=== PATIENT | female | born 1970 | race Two or more races ===

== ENCOUNTER 2018-12-20 22:03 | Emergency (ER) | payer OTHER ==
[~2018-12-20] VITALS: Ht 162.6 cm; Wt 68.0 kg
[2018-12-20 22:10] VITALS: BP 114/68
[2018-12-20] MEDS ORDERED: TETRACAINE 0.5% OPHTH SOLUTION 4ML BOTTLE. ONE (22:10)
[2018-12-20] MEDS ORDERED: ERYTHROMYCIN 0.5% OPHTH OINTMENT 1GM TUBE. OS ONE (22:15)
[2018-12-20] MEDS ORDERED: TETRACAINE 0.5% OPHTH SOLUTION 4ML BOTTLE. OS ONE (22:15)
[2018-12-20] MEDS ORDERED: EYE-STREAM OPHTH SOLUTION 120 ML BOTTLE. OS ONE (22:30)
[2018-12-20] MEDS ORDERED: FLUORESCEIN OPHTH TEST STRIP. OS ONE (22:45)
[2018-12-20] MEDS ORDERED: ERYT1OIN6 OP (23:36)
--- NOTE | 2018-12-20 23:37 | PHYS DOC ---
Past Medical History Past Medical History: No Pertinent History Past Surgical History: Hysterectomy Alcohol Use: None Drug Use: None Adult General Chief Complaint Chief Complaint: EYE PROBLEMS HPI HPI Patient is a 48 year old [f__sex] who presents with [] Review of Systems Review of Systems Constitutional: Denies fever or chills [] Eyes: Denies change in visual acuity, redness, or eye pain [] HENT: Denies nasal congestion or sore throat [] Respiratory: Denies cough or shortness of breath [] Cardiovascular: No additional information not addressed in HPI [] GI: Denies abdominal pain, nausea, vomiting, bloody stools or diarrhea [] : Denies dysuria or hematuria [] Musculoskeletal: Denies back pain or joint pain [] Integument: Denies rash or skin lesions [] Neurologic: Denies headache, focal weakness or sensory changes [] Endocrine: Denies polyuria or polydipsia [] All other systems were reviewed and found to be within normal limits, except as documented in this note. Current Medications Current Medications Current Medications Medications (Trade) Dose Ordered Sig/Caitlin Start Time Stop Time Status Last Admin Dose Admin Acetaminophen/ Hydrocodone Bitart (Lortab 5/325) 1 tab 1X ONCE 12/21/18 00:00 12/21/18 00:01 DC Balanced Salt Solution (Eye-Stream) 120 ml 1X ONCE 12/20/18 22:30 12/20/18 22:40 DC Erythromycin (Romycin) 0.25 inch 1X ONCE 12/20/18 22:15 12/20/18 22:40 DC 12/20/18 22:35 0.25 INCH Fluorescein Sodium (Ful-Kimberly) 1 strip 1X ONCE 12/20/18 22:45 12/20/18 22:46 DC 12/20/18 22:35 1 STRIP Tetracaine HCl (Tetracaine) 40 drop STK-MED ONCE 12/20/18 22:10 12/20/18 22:11 DC Allergies Allergies Allergies Coded Allergies Type Severity Reaction Last Updated Verified No Known Drug Allergies 12/20/18 No Physical Exam Physical Exam Constitutional: Well developed, well nourished, no acute distress, non-toxic appearance. [] HENT: Normocephalic, atraumatic, bilateral external ears normal, oropharynx moist, no oral exudates, nose normal. [] Eyes: PERRLA, EOMI, conjunctiva normal, no discharge. [] Neck: Normal range of motion, no tenderness, supple, no stridor. [] Cardiovascular:Heart rate regular rhythm, no murmur [] Lungs & Thorax: Bilateral breath sounds clear to auscultation [] Abdomen: Bowel sounds normal, soft, no tenderness, no masses, no pulsatile masses. [] Skin: Warm, dry, no erythema, no rash. [] Back: No tenderness, no CVA tenderness. [] Extremities: No tenderness, no cyanosis, no clubbing, ROM intact, no edema. [] Neurologic: Alert and oriented X 3, normal motor function, normal sensory function, no focal deficits noted. [] Psychologic: Affect normal, judgement normal, mood normal. [] Current Patient Data Vital Signs Vital Signs Date Time Temp Pulse Resp B/P (MAP) Pulse Ox O2 Delivery O2 Flow Rate FiO2 12/20/18 22:10 98.0 68 20 156/74 (101) 99 Room Air 98.0 EKG EKG [] Radiology/Procedures Radiology/Procedures [] Course & Med Decision Making Course & Med Decision Making Pertinent Labs and Imaging studies reviewed. (See chart for details) [] Dragon Disclaimer Dragon Disclaimer This electronic medical record was generated, in whole or in part, using a voice recognition dictation system. Departure Departure Impression: Primary Impression: Eye foreign bodies Additional Impression: Corneal abrasion, left Disposition: 01 HOME, SELF-CARE Condition: STABLE Referrals: MELINA COX MD (PCP) KESHA ABDI MD Patient Instructions: Eye - Corneal Abrasion, [id number], Eye - Corneal Foreign Body Scripts Hydrocodone/Apap 5-325 (NORCO 5-325 TABLET) 1 Each Tablet 0.5 TAB PO PRN Q6HRS PRN for PAIN, #8 TAB 0 Refills Prov: TOM NUNEZ DO 12/21/18 Erythromycin Base (Erythromycin) 1 Gm Oint...g. 0.25 INCH OP QID for 5 Days, MISC Prov: TOM NUNEZ DO 12/20/18 Problem Qualifiers Primary Impression: Eye foreign bodies Encounter type: initial encounter Laterality: left Qualified Codes: T15.92XA - Foreign body on external eye, part unspecified, left eye, initial encounter Additional Impression: Corneal abrasion, left Encounter type: initial encounter Qualified Codes: S05.02XA - Injury of conjunctiva and corneal abrasion without foreign body, left eye, initial encounter TOM NUNEZ DO Dec 20, 2018 23:37
[2018-12-21] MEDS ORDERED: HYDROcodone/APAP 5/325MG 1 TAB TABLET PO ONE
[2018-12-21] MEDS ORDERED: HYDR-3164 PO (00:07)
== END 2018-12-21 00:32 | disposition home or self-care (01) ==
LOC: ER 22:03
DX: T15.02XA Foreign body in cornea, left eye, initial encounter (principal); X58.XXXA Exposure to other specified factors, initial encounter; Y93.89 Activity, other specified; Y92.89 Other specified places as the place of occurrence of the external cause; Y99.8 Other external cause status
CPT/HCPCS: 99283